=== PATIENT | male | born 1985 | race African-American/Black ===

== ENCOUNTER → 2019-06-12 | Emergency (ER) | payer OTHER ==
[2019-06-12] MEDS: IBUPROFEN 800 MG TAB PO (06:41)
== END | disposition home or self-care (01) ==
LOC: E/R 06:15
DX: K50.919 Crohn's disease, unspecified, with unspecified complications (principal)
CPT/HCPCS: 71045; 93005; 99284-25

== ENCOUNTER 2019-06-13 19:53 | Emergency (ER) | payer OTHER ==
[2019-06-13] MEDS: PIPER-TAZO 3.375 GM IV (PMX) 100 ML IVPB (20:45)
[2019-06-13] MEDS: DEXAMETHASONE 10 MG/ML 1 ML INJ IV (20:45)
[2019-06-13] MEDS: SODIUM CHLORIDE 0.9% 1L BAG IV* (20:45)
[2019-06-13] MEDS: ONDANSETRON 4 MG INJ IV (20:46)
[2019-06-13] MEDS: morphine 4 MG/ML VIAL IV (20:46)
[2019-06-13] MEDS: KETOROLAC 30 MG INJ IV (20:46)
[2019-06-13 20:48] LABS: ADD MAN DIFF? NO
[2019-06-13 20:51] LABS: WHITE BLOOD COUNT 6.7 10^3/ul (4.8-10.8)
[2019-06-13 20:51] LABS: ABNORMAL IP MESSAGE 1; BASOPHILS % 0.3 % (0.0-2.0); EOSINOPHILS # 0.1 10^3/ul (0.0-0.5); EOSINOPHILS % 1.6 % (0.0-7.0); HEMATOCRIT 33.2 % (42.0-52.0); HEMOGLOBIN 9.2 g/dl (14.0-18.0); LYMPHOCYTES % 15.5 % (15.0-51.0); MEAN CORPUSCULAR HEMOGLOBIN 18.3 pg (29.0-33.0); MEAN CORPUSCULAR HGB CONC 27.7 g/dl (32.0-37.0); MEAN CORPUSCULAR VOLUME 65.9 fl (82.0-101.0); MEAN PLATELET VOLUME 7.9 fl (7.4-10.4); MONOCYTE # 1.2 10^3/ul (0.3-0.9); MONOCYTES % 17.6 % (0.0-11.0); NEUTROPHIL # 4.3 10^3/ul (1.6-7.5); NEUTROPHILS % 64.4 % (39.0-77.0); PLATELET COUNT 323 10^3/UL (140-415); POSITIVE DIFF @See below; RED BLOOD COUNT 5.04 10^6/ul (4.70-6.10); RED CELL DISTRIBUTION WIDTH 21.9 % (11.5-14.5)
[2019-06-13 21:07] LABS: ALANINE AMINOTRANSFERASE 18 IU/L (13-69); ALBUMIN/GLOBULIN RATIO 0.81; ALKALINE PHOSPHATASE 92 IU/L (42-121); ANION GAP 7 (5-13); ASPARTATE AMINO TRANSFERASE 15 IU/L (15-46); BILIRUBIN,INDIRECT 0.4 mg/dl (0-1.1); BILIRUBIN,TOTAL 0.4 mg/dl (0.2-1.3); BLOOD UREA NITROGEN 8 mg/dl (7-20); CALCIUM 9.2 mg/dl (8.4-10.2); CARBON DIOXIDE 29 mmol/L (21-31); CHLORIDE 101 mmol/L (97-110); CREATININE 1.13 mg/dl (0.61-1.24); Estimated GFR > 60 mL/min (>60); GLUCOSE 105 mg/dl (70-220); LIPASE 532 U/L (23-300); POTASSIUM 3.8 mmol/L (3.5-5.1); SODIUM 137 mmol/L (135-144); TOTAL PROTEIN 8.9 g/dl (6.1-8.1)
== END 2019-06-13 23:10 | disposition home or self-care (01) ==
LOC: E/R 19:53
DX: K50.90 Crohn's disease, unspecified, without complications (principal); K52.9 Noninfective gastroenteritis and colitis, unspecified
CPT/HCPCS: 36415; 71045; 74176; 80053; 83605; 83690; 85025; 87040-91; 96374; 96375; 99285-25